=== PATIENT | female | born 1970 | race Caucasian/White ===

== ENCOUNTER 2022-05-29 09:36 | Emergency (ER) | payer MEDICARE ==
[2022-05-29] MEDS ORDERED: Penicillin V Potassium 250 MG TAB ONE (10:08)
== END 2022-05-29 10:30 | disposition home or self-care (01) ==
LOC: BURERS 09:36
DX: K04.7 Periapical abscess without sinus (principal); K02.9 Dental caries, unspecified; I10 Essential (primary) hypertension
CPT/HCPCS: 99282